=== PATIENT | male | born 1950 | race Caucasian/White ===

== ENCOUNTER 2021-08-21 07:21 | Outpatient (CLI) | payer MEDICARE, BC, SELFPAY ==
--- OUTSIDE RECORDS SUMMARY | 2021-08-13 09:53 | XMS_ITS | Continuity of Care Document ---
:1950 Author Allergies, Adverse Reactions, Alerts Allergen Type Severity Reaction Last Verified Status Updated Sulfamethoxazole Allergy Mild RASH June 19, Yes Act [place] 2021 Trimethoprim Allergy Mild RASH June 19, Yes Active 2021 Sulfa drugs Allergy Mild RASH June 19, Yes Active 2021 Social History Smoking Status Status Start Date End Date Date of Observat ion Never smoked tobacco May 01, 2018 12:50pm (finding) Additional Data Assigned Sex Male Problems Active Problems Medical Problem Onset Date Status Renal lesion Active Multiple rib fractures Active Medications Medication Status Dose Units Route Directions Qty Days Start End Ins tructions Date Date Aspirin Active 81 MG PO Daily 100 Celecoxib Active 200 MG PO Twice A Day 60 (Celebrex) 200 Mg CAP Gabapentin Active 300 MG PO Three Times 90 A Day Hydrocodone-Ac Active 1-2 TAB PO Q4-6H Prn 06 May etaminophen 4th, (Vicodin 2012 5/500) 5 1:36pm Mg/500 Mg TAB Sildenafil Active 100 MG PO As Needed TAKE 1 TAB 1 Citrate HR PRIOR TO (Viagra) 100 INTERCO URSE Mg TAB Cyclobenzaprin Discontin 10 MG PO Three Times 06 May M arch e [facility] ued A Day as , (Flexeril) 10 needed 2013 2014 Mg TAB 5:02pm 10:25a m Advance Directives Advance Directive Response Recorded Date/Time Does Pt have Health Care No May 10 4 8:00am Directive? Has patient completed a No May 01, 2018 12:50pm Health Care Directive? Insurance Providers Guarantor Albert Durán Address [address] [place] [address] Contact Info. Home Phone: CELL Payer Policy Id Coverage Id Subscriber's Subscriber Id Effective E xpiration Name Date Date Medicare [id number] Leeanna, [address] Wh[address] [place] [id number] Leeanna, [id number] Albert Whitten 01 Plan of Treatment Future Tests Future scheduled test information is unavailable Pending Tests Pending diagnostic test information is unavailable Future Visits Future appointment information is unavailable Referrals to Other Providers Reason for Referral Start Provider Provider Contact Provider Address Referral Date Information Mj Paul Work Phone: [facility] SOFIYA NERI [address] [facility] [phone] Future Procedures Future procedure information is unavailable Future Medications Future medication information is unavailable Patient Instructions See Additional Instructions Rib Fracture (ED)
== END 2021-08-21 07:22 | disposition home or self-care (01) ==
PROVIDERS: PCP Student in an Organized Health Care Education/Training Program; Visit Provider Family Medicine
DX: M54.16 Radiculopathy, lumbar region (principal); M51.36 Other intervertebral disc degeneration, lumbar region
CPT/HCPCS: 62323; J0702; Q9966

== ENCOUNTER 2022-01-22 07:16 | Outpatient (CLI) | payer MEDICARE, BC, SELFPAY | END 2022-01-22 07:17 | disposition home or self-care (01) | LOC: INJ CL 07:17 | PROVIDERS: PCP Student in an Organized Health Care Education/Training Program; Visit Provider Family Medicine | DX: M51.36 Other intervertebral disc degeneration, lumbar region (principal); M54.16 Radiculopathy, lumbar region | CPT/HCPCS: 62323; J0702; Q9966 ==

== ENCOUNTER 2022-05-02 07:13 | Day surgery (SDC) | payer MEDICARE, BC, SELFPAY ==
[2022-05-02] VITALS (13 sets, daily range): BP systolic 87–134; BP diastolic 54–76; PULSE 55–71; RESP 16; TEMP 36.1–36.8; O2SAT 95–100; BMI 31.4
[2022-05-02] MEDS: SODIUM CHLORIDE 0.9 % (FLUSH) 10 ML SYRINGE IVF (07:30)
[2022-05-02] MEDS: LACTATED RINGERS 1000 ML 1,000 ML 100 ML IV (07:30)
--- NOTE | 2022-05-02 07:55 | SUR.PREOP ---
HOME COVID TEST NEGATIVE.
[2022-05-02] MEDS: CEFAZOLIN 2 GM INJ IVP (08:23)
--- NOTE | 2022-05-02 08:39 | W.ANESCHARGE ---
Anesthesia Charges Start Date/Time Anesthesia Start Date: 05/02/22 Anesthesia Start Time: 08:23 Stop Date/Time Anesthesia Stop Date: 05/02/22 Anesthesia Stop Time: 09:15 Summary Extremes of Age - Over 70 or under 1: MDA
[2022-05-02] MEDS: BUPIVACAINE 0.25% 30 ML INJECTION (09:05)
--- NOTE | 2022-05-02 09:16 | W.ANESCHARGE ---
Anesthesia Charges Start Date/Time Anesthesia Start Date: 05/02/22 Anesthesia Start Time: 08:23 Stop Date/Time Anesthesia Stop Date: 05/02/22 Anesthesia Stop Time: 09:15 Summary Emergency: FILLING [employer]
--- NOTE | 2022-05-02 09:38 | SUR.PHASEI ---
alerted POULTRY FARMWORKER to Bp. Pt given phenelephrine by student labor and delivery registered nurse
--- NOTE | 2022-05-02 09:41 | P.ORPRC_ITS ---
Procedure Note Date of procedure: 05/02/22 Procedure: PREOPERATIVE DIAGNOSIS: Left knee medial and lateral meniscus tear, intra- articular loose body POSTOPERATIVE DIAGNOSIS: Left knee medial and lateral meniscus tear, intra- articular loose body NAME OF OPERATION: Left knee arthroscopic partial medial and lateral meniscectomy, loose body removal SURGEON: Blaine Johnson MD WATER PIPE INSTALLER: DILIP Reid ANESTHESIA: Spinal ESTIMATED BLOOD LOSS: 0 mL COMPLICATIONS: None SPECIMENS: None DRAINS: None PREOPERATIVE ANTIBIOTICS: Ancef 2 gram INDICATIONS: The patient is a 71-year-old with a history of left knee pain. MRI scan is consistent with tearing of both menisci. Despite appropriate no noperative management, including activity modification, antiinflammatories, [id number] pain medication, bracing, physical therapy, and injections they continue to have pain and disability. Operative intervention was offered. The risks, benefits and expected outcomes were discussed in detail. These included but were not limited to: Infection, bleeding, injury to blood vessel or nerve, venous thromboembolism. All questions were answered to their satisfaction. PROCEDURE: Spinal anesthesia was administered. The patient was placed supine on the operating room table. The left lower extremity was prepped and draped in the usual sterile fashion. The limb was exsanguinated with the Harpreet bandage. The pneumatic tourniquet was inflated to 300 mmHg. A standard anterolateral portal was established. The arthroscope was introduced. The working portal was established anteromedially. Diagnostic arthroscopy was performed with findings as follows: The suprapatellar pouch is normal. Articular surface on the patella shows diffuse grade 2/3 change. Articular surface on the trochlea shows diffuse grade 3, focal grade 4 change centrally. The medial gutter is normal. The medial com partment shows diffuse grade 3 change on the medial femoral condyle, grade 2/3 change on the medial tibial plateau. The medial meniscus has a degenerative tear of the posterior horn, primarily consisting of an undersurface horizontal cleavage tear and tearing of the leading edge. There is some radial tearing at the posterior tibial attachment that does not detach it from the tibia. The notch shows the ACL to be intact. There is a bony loose body attached to the anterior horn of the lateral meniscus, lateral insertion of the ACL. The lateral compartment shows a focal area of grade 3 change on the lateral femoral condyle, normal articular cartilage on the lateral tibial plateau. The lateral meniscus shows radial tearing at the posterior tibial attachment from the leading edge to the capsule, detaching it from the tibia. The lateral gutter is normal. The loose body was removed intact with Mahnaz. The posterior horn of the medial meniscus was debrided to a stable base using a combination of baskets and shaver through both portals. Unstable chondral flaps on the medial and lateral femoral condyle, femoral trochlea and patella were debrided with the shaver through both portals, taken to a stable base. The posterior horn of the lateral meniscus was debrided with the shaver through the anterolateral portal, taken to a stable base. The lateral meniscus is detached from the tibia, but is well attached to the capsule. Given the amount of arthritis, root repair was not considered. Arthroscopic instruments were removed, the portal sites were Steri-Stripped closed, the knee was infiltrated with 30 mL of 0.25% Marcaine without epinephrine. A dry dressing was applied, the tourniquet was released. Sponge and needle counts were correct x 2. The patient tolerated the procedure well. There were no apparent complications. They were carefully transferred to the hospital bed and taken to the postanesthesia care unit in satisfactory condition. PLAN: The patient will be discharged to home. They may weightbear as tolerates. Range of motion will be unrestricted. They will follow up in the office next week for a wound check.
[2022-05-02] MEDS: LACTATED RINGERS 1000 ML 1,000 ML 75 ML IV (09:45)
== END 2022-05-02 11:15 | disposition home or self-care (01) ==
PROVIDERS: PCP Student in an Organized Health Care Education/Training Program; Visit Provider Orthopaedic Surgery
PROC: (CPT 29870; principal; 2022-05-02 08:45)
DX: M23.222 Derangement of posterior horn of medial meniscus due to old tear or injury, left knee (principal); M23.42 Loose body in knee, left knee; M23.252 Derangement of posterior horn of lateral meniscus due to old tear or injury, left knee
CPT/HCPCS: 29880; 01400; 99100; 99140; J0690; J1100; J2250; J2400; J2405; J2704; J3010; J3490; J7120

== ENCOUNTER 2022-06-18 08:24 | Outpatient (CLI) | payer MEDICARE, BC, SELFPAY | END 2022-06-18 08:25 | disposition home or self-care (01) | LOC: INJ CL 08:25 | PROVIDERS: PCP Student in an Organized Health Care Education/Training Program; Visit Provider Family Medicine | DX: M54.16 Radiculopathy, lumbar region (principal); M51.36 Other intervertebral disc degeneration, lumbar region | CPT/HCPCS: 62323; J0702; Q9966 ==

== ENCOUNTER 2023-01-07 09:42 | Outpatient (CLI) | payer MEDICARE, BC, SELFPAY | END 2023-01-07 09:43 | disposition home or self-care (01) | LOC: INJ CL 09:43 | PROVIDERS: PCP Student in an Organized Health Care Education/Training Program; Visit Provider Family Medicine | DX: M54.16 Radiculopathy, lumbar region (principal); M51.36 Other intervertebral disc degeneration, lumbar region | CPT/HCPCS: 62323; J0702; Q9966 ==

== ENCOUNTER 2023-06-17 07:34 | Outpatient (CLI) | payer MEDICARE, BC, SELFPAY ==
--- OUTSIDE RECORDS SUMMARY | 2023-06-17 07:36 | XMS_ITS | Clinical Summary ---
Author Name Unknown Organization [facility] Address [place], [place] [address] Care Team Providers Care Sales And Service Agent Name Role Phone Phillip Hernandez DO Primary Care Provider [phone] Allergies Active Allergy Reactions Criticality Noted Date Comments Sulfa (Sulfonamide Antibiotics) Edema 10/28/2006 Sulfamethoxazole-Trimethop rim Hives High 11/24/2006 intolerance; lip swells Medications Medication Sig Dispensed Refills Start Date End Date Status acetaminophen (TYLENOL EXTRA STRGTH) 500 mg tablet Take 1 tablet by mouth every 6 hours if needed. Max acetaminophen dose: 4000mg in 24 hrs. Patient takes 2 tabs BID 0 6 Active desonide 0.05% (DESOWEN) 0.05 % lotionIndications:S eborrheic dermatitis, unspecified Apply topically to affected area(s) 2 times daily. 1 Bottle 5 6 Active ezetimibe (ZETIA) 10 mg tabletIndications:M ixed hyperlipidemia Take 1 Tablet (10 mg) by mouth once daily. 90 Tablet 3 3 Active gabapentin (NEURONTIN) 600 mg tabletIndications:N yanique strain, sequela TAKE ONE TABLET (600 MG) BY MOUTH AT BEDTIME. 30 Tablet 11 3 Active amLODIPine (NORVASC) 10 mg tabletIndications:H TN (hypertension) TAKE ONE TABLET (10MG) BY MOUTH ONCE DAILY 90 Tablet 2 4 Active LORazepam (ATIVAN) 1 mg tabletIndications:S houlder weakness Take 1 Tablet (1 mg) by mouth one time for 1 dose. 30-60 minutes prior to MRI scan 1 Tablet 4 Active HYDROcodone-acetami nophen (5-325 mg/tablet)Indicatio ns:Lumbar radiculopathy,DDD (degenerative disc disease), lumbar Take 1 Tablet by mouth 3 times daily if needed for Pain (chronic). for pain 60 Tablet 4 Active celecoxib (CELEBREX) 200 mg capsuleIndications: Right shoulder strain, initial encounter Take 1 Capsule (200 mg) by mouth 2 times daily if needed for Pain. 24 Capsule 1 4 Active celecoxib (CELEBREX) 200 mg capsuleIndications: Right shoulder strain, initial encounter Take 1 Capsule (200 mg) by mouth once daily with a meal. 42 Capsule 1 3 06/05/19 24 Discontinu ed(Reorder (E-cancel not sent)) HYDROcodone-acetami nophen (5-325 mg/tablet)Indicatio ns:Lumbar radiculopathy,DDD (degenerative disc disease), lumbar Take 1 Tablet by mouth 3 times daily if needed for Pain (chronic). for pain 60 Tablet 4 06/05/19 24 Discontinu ed(Reorder (E-cancel not sent)) Active Problems Problem Noted Date Diagnosed Date Concussion without loss of consciousness, sequel a 04/25/2022 Stage 3a chronic kidney disease 04/25/2022 History of gout 09/19/2021 Hypercalcemia 09/19/2021 Hyperparathyroidism 09/19/2021 Osteopenia of multiple sites 05/18/2021 Overview: Dr. 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 04/25/2010 INGUINAL HERNIA UNILATERAL: LEFT; Direct 008 Seborrheic dermatitis, unspecified 11/24/2006 Encounters Date Type Department Care Team Description 06/05/2023 7:40 AM CDT Office Visit [facility] [address] [place] [address] Barry Ramos MD Musculoskeletal Problem (Follow up right shoulder pain/Follow up low back pain) 06/05/2023 Travel 04/09/2023 7:45 AM PURCHASING ANALYST Procedure Only [facility] [address] [place] [address] Barry Ramos MD Procedure (USGI - Right shoulder glenohume... 04/09/2023 Travel 04/06/2023 Travel 03/28/2023 Telephone [facility] [address] [place] [address] Barry Ramos MD Results (MRI) 03/27/2023 7:15 AM PURCHASING ANALYST Ancillary Procedure [facility] [address] [facility] [place] [address] 03/27/2023 Travel from Last 3 Months Immunizations Name Administration Dates Next Due AMB Influenza, IIV4 PF (=>6 mos Flulaval,Fluzone Fluarix)(Flu Clinic Only) 11/09/2013 COVID-19 vaccine (PulseOn [employer] 30mcg/0.3mL) PF, MDV 05/04/2020,04/13/2020 Hepatitis A (Adult) 02/19/2007,10/15/2004 Influenza A (H1N1), Inactivated 01/31/2009 Influenza, High-dose Inactivated 019,12/08/2017,12/23/2016,2015 Influenza, High-dose Quadriv alent Inactivated 11/09/2021,11/27/2020,10/27/2019 Influenza, IIV3 (Age 6-35 mos) 12/26/2014 Influenza, IIV3 (Age >=3 years) 12/02/19 13,11/11/2011,11/12/2010,2009,12/21/2007,12/18/2006,01/26/2006 Influenza, IIV4 12/26/2014,11/09/2013 Pneumococcal Poly,23-Valent (Pneumovax) 06/10/2017,01/06/2003 Pneumococcal conj 13-Valent (Prevnar 13) 12/18/2015 Td (Age >=7 Years) 07/04/1998 Tdap 08/23/2020,12/13/2009 Zoster (Shingrix-RZV, recombinant) 10/27/2019, Zoster (Zostavax-ZVL, live) 12/18/2011 Family History Medical History Relation Name Comments Cancer Father Jorje Lung Diabetes Father Jorje Emphysema Father Jorje Heart Disease Father Jorje Hypertension Father Jorje Cancer Mother Patrick Lung Hypertension Mother Patrick Cancer-breast Sister 2 Soco Mastectomy Hypertension Sister 2 [place] Pacemaker Anesthesia Problem No Family History Blood Disease No Family History Relation Name Status Comments Father Jorje (Age 79) Mother Patrick (Age 81) Sister 1 Deidra Alive Sister 2 Soco Alive Sister 3 Mela Alive Sister 4 Dedra Alive Social History Tobacco Use Types Packs/Day Years Used Date Smoking Tobacco: Never Smokeless Tobacco: Never Tobacco Cessation:Counseling Given: Yes Alcohol Use Standard Drinks/Week Comments Yes 3 (1 standard drink = 0.6 oz pur e alcohol) occasional: 3 beers/week PHQ-2 Answer Date Recorded PHQ-2 TOTAL SCORE 0 01/24/2022 Social Connections Answer Date Recorded Frequency of Communication with Friends and Fami ly Not on file 07/18/2022 Financial Resource Strain Answer Date R ecorded Difficulty of Paying Living Expenses 3 07/09/2021 Difficulty of Paying Living Expenses Not on file 07/09/2021 Food Insecurity Answer Date Recorded Worried About Running Out of Food in the Last Ye ar 1 07/09/2021 Transportation Needs Answer Date Record ed Lack of Transportation (Medical) 1 07/09/2021 Housing Stability Answer Date Recorded Unable to Pay for Housing in the Last Year 1 07/09/2021 Sex and Gender Information Value Date Recorded Sex Assigned at Not on file Gender Identity Not on file Sexual Orientation Not on file Obstetrics History Last Filed Vital Signs Vital Sign Reading Time Taken Comments Blood Pressure 151/85 06/05/2023 7:43 AM CDT Pulse 72 06/05/2023 7:43 AM CDT Temperature 36.5 ??C (97.7 ??F) 06/05/2023 7 :43 AM CDT Respiratory Rate 14 09/26/2021 12:3 0 PM CDT Oxygen Saturation 99% 06/05/2023 7:4 3 AM CDT Inhaled Oxygen Concentration - - Weight 105 kg (231 lb 6.4 oz) 06/05/2023 7:43 AM CDT shoes and coat on Height 181.6 cm (5' 11.5) 01/24/2022 8 :27 AM PURCHASING ANALYST Body Mass Index 31.82 01/24/2022 8:27 AM PURCHASING ANALYST Plan of Treatment Upcoming Encounters Date Type Department Care Team (Late st Contact Info) Description 06/17/2023 8:20 AM CDT Office Visit [facility] at [address] [phone] Barry Ramos MD [address] [place] [address] 07/09/2023 7:20 AM CDT Procedure Only [address] [address] Barry Ramos MD [address] [place] [address] 09/04/2023 7:40 AM CDT Office Visit [facility] [address] [place] [address] Barry Ramos MD [address] [place] [address] Health Maintenance Due Date Last Done Comments BMI (ht and wt on same day) for age 18+ 01/24/2023 01/24/2022, 09/19/2021, 08/01/2020, Additional history exists Depression screening for age 12+ 01/25/2023 01/25/2022, 01/24/2022, 01/24/2022, Additional history exists Medicare Wellness for age 65+ 01/25/2023, 08/01/2020, 01/21/2019, Additional history exists Influenza for age 65+ 10/19/2023 11/09/2021 , 11/27/2020, 10/27/2019, Additional history exists Colonoscopy through age 75 02/28/202402/27, 02/27/2022, 02/27/2022, Additional history exists Lipids for age 45-75 08/03/2027 08/02/2022, 01/24/2022, 08/01/2020, Additional history exists Tetanus booster 08/23/2030 08/23/2020, 11/18, 07/04/1998 Hepatitis C screening for ag e 18-79 Completed 02/08/2016 Pneumococcal series for age 65+ Completed 06/10/2017, 12/18/2015, 01/06/2003 Zoster (shingles) series for age 50+ Completed 10/27/2019, 11/27/2018, 12/18/2011 Tdap Completed 08/23/2020, 12/13/2009 COVID-19 vaccine series Completed 12/05/19, 09/17/2022, 12/07/2021, Additional history exists Procedures Procedure Name Priority Date/Time Associated Diagnosis Comments BEDSIDE US STUDY ARCHIVE Routine 04/09/2023 1:30 PM PURCHASING ANALYST Arthritis of right glenohumeral joint Arthritis of right acromioclavicular joint MR SHOULDER RIGHT WO Routine 03/27/2023 7:31 AM PURCHASING ANALYST Lumbar radiculopathy DDD (degenerative disc disease), lumbar Right shoulder strain, initial encounter Shoulder weakness LIPID PANEL Routine 08/02/2022 1:34 PM CDT Mixed hyperlipidemia COLONOSCOPY 02/27/2022 8:32 AM PURCHASING ANALYST ANTI HCV Routine 02/08/2016 10:03 AM PURCHASING ANALYST Need for hepatitis C screening test from Last 3 Months or Most Recently Relevant to Health Maintenance Results * BEDSIDE US STUDY ARCHIVE (04/09/2023 1:30 PM PURCHASING ANALYST) Narrative Araseli Jim - 04/09/2023 1:30 PM PURCHASING ANALYST The patient was seen for ultrasound guided injection by Dr. Barry Ramos. Ultrasound was not used for diagnostic purposes, but to guide the needle placement and document the position of the injection. ?? See patient's EPIC encounter for the detail of the procedure; see [facility] for saved images of the injection. Barry Ramos MD PROCEDURE ORD * MR SHOULDER RIGHT WO (03/27/2023 7:31 AM PURCHASING ANALYST) Anatomical Region Laterality Modality SHOULDER R Magnetic Resonan ce 03/27/2023 11:1 2 AM PURCHASING ANALYST Impressions 03/27/2023 11:12 AM PURCHASING ANALYST 1. Moderate glenohumeral osteoarthritis. Associated mucoid change in degenerative marginal tearing in the glenoid labrum. 2. Biceps tenosynovitis. 3. Tendinosis without significant tearing in the supraspinatus and infraspinatus. Mild tendinosis margins of the subscapularis. 4. Likely remote posttraumatic arthrosis AC joint with small effusion. Dictated by Barry Lauren MD @ 03/27/2023 11:12:39 AM (Electronically Signed) Narrative 03/27/2023 11:12 AM PURCHASING ANALYST For Patients: ??As a result of the Century Cures Act, medical imaging exams and procedure reports are released immediately into your electronic medical record. ??You may view this report before your referring provider. ??If you have questions, please contact your health care provider. INDICATION: Shoulder pain and weakness. COMPARISON: Plain film 03 February 2023. TECHNIQUE: Axial T1 and PD fat-sat, coronal PD, T2 and PD fat sat and sagittal PD and T2 right shoulder sequences. FINDINGS: Rotator cuff: Patchy mildly disorganized intermediate signal slightly expands supraspinatus. No tear. Intact teres minor. Some patchy tendinosis and mild expansion in the intact infraspinatus. Intact subscapularis shallow intermediate signal marginal tendinosis. No atrophy or edema in the muscles. - Acromioclavicular joint and coracoacromial arch: Curved type 2 acromial undersurface with patent acromiohumeral distance. Posttraumatic arthrosis of the AC joint which is widened with ossicles at the cephalad margin. Small bland appearing effusion. Intact coracoclavicular ligaments. No fluid in the bursa. Subcoracoid interval is patent. Biceps labral complex: Assessment limited by a non arthrogram study and paucity of fluid in the joint. Indistinct blunted margins and intermediate signal circumferentially. Intact biceps anchor and appropriately located biceps tendon. Moderate fluid and some synovitis distend the tendon sheath. - Glenohumeral joint: High-grade 3 to grade 4 cartilage loss superior humeral head. Grade 3 cartilage loss in the glenoid. Subchondral cysts and some sclerosis of the posterior margin. Small marginal osteophytes of humeral head and glenoid. No capsulitis. No measurable intra-articular body. No significant synovitis. - Bones and soft tissues: Deltoid bulk and signal is normal. Glenoid version is neutral. No fracture or bone lesion. Visualized axilla is clear. Procedure Note Barry Lauren MD - 03/27/2023 For Patients: As a result of the Cures Act, medical imagingexams and procedure reports are released immediately into your electronicmedical record. You may view this report before your referring provider.If you have questions, please contact your health care provider. INDICATION: Shoulder pain and weakness. COMPARISON: Plain film 03 February 2023. TECHNIQUE: Axial T1 and PD fat-sat, coronal PD, T2 and PD fat sat and sagittal PD andT2 right shoulder sequences. FINDINGS: Rotator cuff: Patchy mildly disorganized intermediate signal slightlyexpands supraspinatus. No tear. Intact teres minor. Some patchy tendinosisand mild expansion in the intact infraspinatus. Intact subscapularisshallow intermediate signal marginal tendinosis. No atrophy or edema inthe muscles. - Acromioclavicular joint and coracoacromial arch: Curved type 2 acromialundersurface with patent acromiohumeral distance. Posttraumatic arthrosisof the AC joint which is widened with ossicles at the cephalad margin.Small bland appearing effusion. Intact coracoclavicular ligaments. Nofluid in the bursa. Subcoracoid interval is patent. Biceps labral complex: Assessment limited by a non arthrogram study andpaucity of fluid in the joint. Indistinct blunted margins and intermediatesignal circumferentially. Intact biceps anchor and appropriately locatedbiceps tendon. Moderate fluid and some synovitis distend the tendonsheath. - Glenohumeral joint: High-grade 3 to grade 4 cartilage loss superiorhumeral head. Grade 3 cartilage loss in the glenoid. Subchondral cysts andsome sclerosis of the posterior margin. Small marginal osteophytes ofhumeral head and glenoid. No capsulitis. No measurable intra-articularbody. No significant synovitis. - Bones and soft tissues: Deltoid bulk and signal is normal. Glenoid versionis neutral. No fracture or bone lesion. Visualized axilla is clear. IMPRESSION: 1. Moderate glenohumeral osteoarthritis. Associated mucoid change indegenerative marginal tearing in the glenoid labrum. 2. Biceps tenosynovitis. 3. Tendinosis without significant tearing in the supraspinatus andinfraspinatus. Mild tendinosis margins of the subscapularis. 4. Likely remote posttraumatic arthrosis AC joint with small effusion. Dictated by Barry Lauren MD @ 03/27/2023 11:12:39 AM (Electronically Signed) Barry Ramos MD MR * (ABNORMAL) LIPID PANEL (08/02/2022 1:34 PM CDT) CHOLESTEROL,TOTAL 201(H) 100 - 199 mg/dL 08/02/2022 11:10 PM CDT [facility] Comment: Cholesterol, Total Reference Ranges Desirable <200 mg/dL Borderline 200-239 mg/dL High >=240 mg/dL TRIGLYCERIDES 247(H) <150 mg/dL 08/02/2022 11:10 PM CDT [facility] HDL CHOLESTEROL 44 >40 mg/dL 11:10 PM CDT [facility] NON-HDL CHOLESTEROL 157(H) <145 mg/dl 08/02/2022 11:10 PM CDT [facility] CHOL/HDL RATIO 4.57(H) <4.50 08/02/2022 11:10 PM CDT [facility] LDL CHOLESTEROL 108 <=130 mg/dL 08/02/2022 11:10 PM CDT [facility] VLDL CHOLESTEROL 49(H) <=30 mg/dL 08/02/2022 11:10 PM CDT [facility] PROVIDER ORDERED STATUS RANDOM 08/02/2022 11:10 PM CDT [facility] Blood BLOOD SPECIMEN / Unknown Venipuncture / Unknown 08/02/2022 1:34 PM CDT 08/02/2022 1:36 PM CDT Phillip Hernandez DO [facility] [address] [place] [address], [place] * COLONOSCOPY (02/27/2022 8:32 AM PURCHASING ANALYST) 02/27/2022 8:32 AM PURCHASING ANALYST Narrative Transcriptions Harpreet Dior MD - 02/27/2022 9:16 AM CST Patient Name: Albert Leeanna Procedure Date: 02/27/2022 Gender: Male Date of : 1950 Admit Type: Outpatient Procedure: Colonoscopy Proceduralist: Harpreet Dior MD , Janine Tripp RN (Nurse), Christiana Snow, BRYANT (Nurse) Indications/Pre-Op Diagnosis: High risk colon cancer surveillance:Personal history of multiple (3 or more) adenomas,Last colonoscopy: February 2021 Medications: Fentanyl 100 micrograms IV, Midazolam 4 mgIV, The level of sedation administered wasmoderate Procedure Description: The patient had risks, benefits and alternatives explained to andgave informed consent. The patient had a stable cardiopulmonary status and judged an adequate candidate for conscious sedation. The endoscope -[id number] was passed through the anus andadvanced to the cecum, identified by appendiceal orifice and ileocecal valve.The colonoscopy was performed without difficulty. The patient toleratedthe procedure well. The quality of the bowel preparation was good. The ileocecal valve, appendiceal orifice, and rectum were photographed. Complications: No immediate complications. Estimated Blood Loss & Specimen: Estimated blood loss: none. Specimen collected - Yes and sent to Laboratory Findings: The perianal and digital rectal examinations were normal. Two sessile polyps were found in the ascending colon. The polyps were3 mm in size. These polyps were removed with a cold snare. Resectionand retrieval were complete. Three sessile polyps were found in the transverse colon. The polypswere 2 to 3 mm in size. These polyps were removed with a cold biopsyforceps. Resection and retrieval were complete. A 4 mm polyp was found in the sigmoid colon. The polyp was sessile.The polyp was removed with a cold snare. Resection and retrieval were complete. A few small-mouthed diverticula were found in the entire colon. The exam was otherwise without abnormality. Impressions/Post-Op Diagnosis: - Two 3 mm polyps in the ascending colon, removed with a cold snare. Resected and retrieved. - Three 2 to 3 mm polyps in the transverse colon, removed with a cold biopsy forceps. Resected and retrieved. - One 4 mm polyp in the sigmoid colon, removed with a cold snare. Resected and retrieved. - Diverticulosis in the entire examined colon. - The examination was otherwise normal. Recommendation: - Patient has a contact number available for emergencies. The signsand symptoms of potential delayed complications were discussed with the patient. Return to normal activities tomorrow. Written discharge instructions were provided to the patient. - Resume previous diet. - Continue present medications. - Await pathology results. - Repeat colonoscopy in 2 years for surveillance. Moderate Sedation: A time out was performed before the procedure. Moderate (conscious) sedation was administered by the endoscopy nurse and supervised bythe endoscopist. The following parameters were monitored: oxygensaturation, heart rate, blood pressure, EKG, CO2, respiratory rate, adequacy of pulmonary ventilation and reponse to care. Please refer to the patient's medical record flowsheets and nursing notes for moderate sedation details. Total physician intraservice time was 26 minutes. Harpreet Dior MD 02/27/2022 9:16:06 AM This report has been signed electronically. Note Initiated On: 02/27/2022 8:32 AM Procedure Code(s): --- Professional --- 90399, Colonoscopy, flexible; with removalof tumor(s), polyp(s), or other lesion(s) bysnare technique 88910, 59, Colonoscopy, flexible; withbiopsy, single or multiple Diagnosis Code(s): --- Professional --- Z86.010, Personal history of colonicpolyps D12.2, Benign neoplasm of ascending colon D12.3, Benign neoplasm of transverse colon (hepatic flexure or splenic flexure) D12.5, Benign neoplasm of sigmoid colon K57.30, Diverticulosis of large intestine without perforation or abscess withoutbleeding CPT copyright 2020 [employer]. All rights reserved. The codes documented in this report are preliminary and upon lunch wagon operator reviewmay be revised to meet current compliance requirements. Scope In: 8:42:44 AM Scope Withdrawal Time 0 hours 22 minutes 6 seconds Scope Out: 9:07:37 AM Harpreet Dior MD PROCEDURE ORD * ANTI HCV (02/08/2016 10:03 AM PURCHASING ANALYST) HEPATITIS C ANTIBODY Non-Reacti ve Non-Reacti ve 02/08/2016 6:49 PM PURCHASING ANALYST [email or web address] Blood BLOOD SPECIMEN / Unknown Venipuncture / Unknown 02/08/2016 10:03 AM PURCHASING ANALYST 02/08/2016 10:03 AM PURCHASING ANALYST Narrative [facility] - 02/08/2016 6:49 PM PURCHASING ANALYST Antibodies to HCV not detected; does not exclude the possibility of exposure to HCV. Mj Paul MD SEND OUTS [facility] [address] [place] [address], from Last 3 Months or Most Recently Relevant to Health Maintenance Advance Directives * Full Code (Latest Code Status on File) Date Activated Date Inactivated Comments 09/26/2021 7:31 AM 09/26/2021 2:58 PM Question Answer Comments Code Status Discussion: Discussed Care Teams Sales And Service Agent Relationship Specialty Start Date End Date Phillip Hernandez DO [address] [place] [address] PCP - General Family Practice 08/01/20
== END 2023-06-17 07:35 | disposition home or self-care (01) ==
PROVIDERS: PCP Student in an Organized Health Care Education/Training Program; Visit Provider Family Medicine
DX: M54.16 Radiculopathy, lumbar region (principal); M51.36 Other intervertebral disc degeneration, lumbar region
CPT/HCPCS: 62323; J0702; Q9966

== ENCOUNTER 2024-04-30 10:01 | Outpatient (CLI) | payer MEDICARE, BC, SELFPAY ==
--- NOTE | 2024-04-30 11:50 | P.ANES_ITS ---
Anesthesia Charges Start Date/Time Anesthesia Start Date: 04/30/24 Anesthesia Start Time: 11:28 Stop Date/Time Anesthesia Stop Date: 04/30/24 Anesthesia Stop Time: 11:50 Summary Extremes of Age - Over 70 or under 1: HEAT TREATER HELPER Coding CPT Codes CPT Codes: BALBIR LWR INTST SCR COLSC - 22118 ([id number]) P2 - PATIENT W/MILD SYST DISEASE, QX - HEAT TREATER HELPER SVC W/ MD MED DIRECTION, QK - MANUFACTURING DESIGN ENGINEER 2-4 CNCRNT ANES PROC Additional Codes: Summary - Extremes of Age - Over 70 or under 1: HEAT TREATER HELPER ([id number])
--- NOTE | 2024-04-30 11:50 | W.ANESCHARGE ---
Anesthesia Charges Start Date/Time Anesthesia Start Date: 04/30/24 Anesthesia Start Time: 11:28 Stop Date/Time Anesthesia Stop Date: 04/30/24 Anesthesia Stop Time: 11:50 Summary Extremes of Age - Over 70 or under 1: LOCK PLATER Coding CPT Codes CPT Codes: BAL[place] LWR INTST SCR COLSC - 70526 ([id number]) P2 - PATIENT W/MILD SYST DISEASE, QX - LOCK PLATER SVC W/ MD MED DIRECTION, QK - FAMILY LAWYER 2-4 CNCRNT ANES PROC Additional Codes: Summary - Extremes of Age - Over 70 or under 1: LOCK PLATER ([id number])
--- NOTE | 2024-04-30 12:38 | P.ANES_ITS ---
Anesthesia Charges Start Date/Time Anesthesia Start Date: 04/30/24 Anesthesia Start Time: 11:28 Stop Date/Time Anesthesia Stop Date: 04/30/24 Anesthesia Stop Time: 11:50 Summary Extremes of Age - Over 70 or under 1: MDA Coding CPT Codes CPT Codes: BALBIR LWR INTST SCR COLSC - 57147 ([id number]) P2 - PATIENT W/MILD SYST DISEASE, QX - AIR TRAFFIC CONTROL EQUIPMENT REPAIRER SVC W/ MD MED DIRECTION, QK - CLOTH FRAMER 2-4 CNCRNT ANES PROC Additional Codes: Summary - Extremes of Age - Over 70 or under 1: MDA ([id number])
--- NOTE | 2024-04-30 12:38 | W.ANESCHARGE ---
Anesthesia Charges Start Date/Time Anesthesia Start Date: 04/30/24 Anesthesia Start Time: 11:28 Stop Date/Time Anesthesia Stop Date: 04/30/24 Anesthesia Stop Time: 11:50 Summary Extremes of Age - Over 70 or under 1: MDA Coding CPT Codes CPT Codes: BALBIR LWR INTST SCR COLSC - 79019 ([id number]) P2 - PATIENT W/MILD SYST DISEASE, QX - SOCIAL WORK ASSISTANT SVC W/ MD MED DIRECTION, QK - SEAMLESS HOSIERY KNITTER 2-4 CNCRNT ANES PROC Additional Codes: Summary - Extremes of Age - Over 70 or under 1: MDA ([id number])
== END 2024-04-30 10:02 | disposition home or self-care (01) ==
LOC: OP CLINIC 10:02
PROVIDERS: PCP Student in an Organized Health Care Education/Training Program; Visit Provider Internal Medicine Gastroenterology
DX: Z12.11 Encounter for screening for malignant neoplasm of colon (principal); K64.8 Other hemorrhoids; Z86.0101 Personal history of adenomatous and serrated colon polyps
CPT/HCPCS: 00812; 45378; 99100; J2704